=== PATIENT | female | born 1975 | race African-American/Black ===

== ENCOUNTER 2020-02-15 15:00 | Outpatient (CLI) | payer BC, SELFPAY ==
--- NOTE | ~2020-02-15 | MM_ITS ---
EXAMINATION: MM screening [place] BI w wei HISTORY: Screening mammogram TECHNIQUE: Craniocaudal and mediolateral oblique 3-D tomosynthesis images were obtained and synthetic 2-D images were generated. CAD analysis was submitted and interpreted. COMPARISON: No prior mammogram is available for comparison at this institution. BREAST PARENCHYMAL COMPOSITION: There are scattered areas of fibroglandular density. FINDINGS: There is no evidence of suspicious mass, calcification, or architectural distortion to sugg est malignancy in either breast. There has been no suspicious interval change. IMPRESSION: 1. No mammographic evidence of malignancy. 2. Recommend routine screening mammography in one year. BI-RADS Category 1: Negative Reviewed, dictated and finalized at location A.
== END 2020-02-15 15:01 | disposition home or self-care (01) ==
LOC: ANHIMG 15:05
PROVIDERS: PCP Internal Medicine; Visit Provider Nurse Practitioner
DX: Z12.31 Encounter for screening mammogram for malignant neoplasm of breast (principal)
CPT/HCPCS: 77063; 77067

== ENCOUNTER 2022-04-30 02:50 | Day surgery (SDC) | payer BC, MEDICAID, SELFPAY ==
[2022-04-25 14:42] VITALS: BMI 46.7
--- NOTE | 2022-04-25 15:30 | SUR.PREOP ---
Report to the Outpatient Waiting Room, entrance under the green pavilion located off [facility], at time 0900 on date 04/30/2022. OR Time: 1100. Time changes happen often and if your time is changed the preop area will call you the afternoon before. - You and your visitor will be asked to self-screen and do not enter if you have any COVID symptoms. - Only one visitor and NO children visitors are allowed at this time. - The patient visitor is requested to leave or wait in car when not with patient due to restrictions. - A mask is required within the hospital. Patients may have clear liquids (water, carbonated beverages, clear teas, apple juice) until 3 hours (0800) prior to surgery with a maximum of 20 ounces. - No food from midnight until time of surgery - Infants may have breast milk until 4 hours before surgery, infant formula 6 hours prior to surgery. - Children will be allowed to drink immediately following surgery. If applicable, please bring a bottle or sippy cup to assist with drinking. Juice, water, soda, and popsicles are readily available. For infants on formula, please bring formula the day of surgery. Pacifiers are allowed. Take the following medications with a SIP of water the morning of surgery: N/A Medications to discontinue per physician vitamins/supplements Date to take last dose 04/27/2022 Please no make-up, nail turkish, hairspray, perfume, deodorant, or body powder the day of surgery. No jewelry (including any body piercings) or valuables the day of surgery, leave them at home. Please take a shower or bath the night before, or the morning of, surgery with an antibacterial soap. Wear comfortable, loose fitting clothing. Children are encouraged to wear pajamas. - Jewelry must be removed prior to entering the operating room. Rings and piercings that are not removed may be cut off. - The hospital will not accept responsibility for valuables. - Please leave all valuables, including medications, at home the day of surgery. If you are going home after surgery, a licensed speedboat driver must drive you home. - NO public transportation without another adult. - We recommend that an adult stay with you for 24 hours following discharge. - We also recommend that you do not drive, make important decision, drink alcoholic beverages, or take any drugs that were not prescribed by your health care provider for at least 24 hours after your discharge time. For Pediatric surgeries, we recommend two adults accompany the child home (only one inside the building at this time). Follow any additional instructions given to you from your surgeon. If you or anyone in your household have experienced Covid symptoms in the past week, please notify your surgeon or the nurse liaison at the phone number below for possible testing. Telephone instructions given to ___patient and asked if any additional questions and then verbalized understanding. Patient advised to call surgeon office or pre surgery nurse liaison [phone] if any additional questions.
--- NOTE | 2022-04-30 07:37 | WPDHPUPDATE1 ---
History and Physical Update Update Date/Time: 04/30/22 07:37 History and Physical has been reviewed, including an updated exam of the patient. There are NO changes in the patient's condition. Risks, benefits, and alternatives have been discussed and questions answered. Patient agrees to proceed with procedure.
--- NOTE | 2022-04-30 07:37 | PM.HPGS ---
History of Present Illness History of Present Illness Consent: Risks, benefits, and alternatives have been discussed and questions answered. Patient agrees to proceed with procedure. Chief complaint: menorrhagia, fibroids Narrative: Muriel Myrick is a 46 year old female with heavy cycles. Patient has known fibroids by ultrasound. Oral contraceptives have helped with timing but with flow. It was recommended to proceed with D&C hysteroscopy with possible MyoSure. Risks of infection, bleeding, perforation, and fluid imbalance were reviewed. It was also discussed that if the fibroid is submucosal the procedure may need to be stopped before it was completely removed due to fluid imbalance. Possible other pathology was also discussed. The patient has a history of a prior hysteroscopy in 2016 and there were no submucosal fibroids. Voices understanding and agrees to proceed. Review of Systems Review of Systems: not repeated day of surgery; patient states no changes in status PMFSH Past Medical History Medical History (Updated 04/30/22 @ 07:42 by Tesha Knight MD) Anxiety Asthma (normal spontaneous vaginal delivery) x1 PVCs (premature ventricular contractions) Surgical History Surgical History (Updated 04/30/22 @ 07:40 by Tesha Knight MD) H/O sinus surgery H/O wrist surgery History of hysteroscopy 2016 Social History Social History Smoking status: Never smoker Living arrangements: with family Spiritual care concerns: No Meds Home Medications and Allergies Home Medications Medication Instructions Recorded Confirmed Type albuterol sulfate 90 mcg/actuation See Rx Instructions .Route .COMPLEX 04/25/22 04/25/22 History aerosol inhaler atenolol 25 mg tablet See Rx Instructions .Route .COMPLEX 04/25/22 04/25/22 History cetirizine 10 mg tablet (Zyrtec) 10 mg PO DAILY PRN Allergy Symptoms 04/25/22 04/25/22 History diphenhydramine HCl 50 mg capsule 50 mg PO HS PRN Allergy Symptoms 04/25/22 04/25/22 History ergocalciferol (vitamin D2) 1,250 50,000 unit PO USEASDIRECTD 04/25/22 04/25/22 History mcg (50,000 unit) capsule esomeprazole magnesium 40 mg 40 mg PO DAILY 04/25/22 04/25/22 History capsule,delayed release (Nexium) fluticasone propionate 50 See Rx Instructions .Route .COMPLEX 04/25/22 04/25/22 History mcg/actuation nasal spray,suspension iron,carbonyl 30 mg-vitamin C 10 1 tablet PO HS 04/25/22 04/25/22 History mg-FOS 25 mg chewable tablet (Chewable Iron) levocetirizine 5 mg tablet (Xyzal) 5 mg PO PRN PRN Allergy Symptoms 04/25/22 04/25/22 History montelukast 10 mg tablet 10 mg PO HS 04/25/22 04/25/22 History (Singulair) norgestimate 0.25 mg-ethinyl 1 tablet PO DAILY 04/25/22 04/25/22 History estradiol 35 mcg tablet (Estarylla) phentermine 37.5 mg tablet See Rx Instructions .Route .COMPLEX 04/25/22 04/25/22 History sertraline 50 mg tablet 50 mg PO DAILY 04/25/22 04/25/22 History Allergies Allergy/AdvReac Type Severity Reaction Status Date / Time peanut Allergy Severe Other Verified 04/25/22 14:37 Sulfa (Sulfonamide Allergy Severe Other Verified 04/25/22 14:36 Antibiotics) tree nut Allergy Severe Other Verified 04/25/22 14:37 Exam Const: General: healthy appearing and alert Orientation/consciousness: patient oriented x3 GI: GI Palp: Yes Soft to palpation, No Tenderness to palpation present (GI) and No Palpable mass present : External Female Exam: normal external appearance Speculum Exam - Vagina: normal appearance of the vagina and normal vaginal discharge Speculum Exam - Cervix: normal appearance of the cervix Bimanual exam- vagina & uterus: consistency normal and enlarged (11 week size with fibroids) Bimanual Exam- Adnexa, other: normal adnexae and No adnexal tenderness Neuro: General: patient oriented x3 Assessment and Plan Assessment and plan (1) Menorrhagia: Code(s): N92.0 - Excessive and frequent menstruation wit
[2022-04-30 09:24] VITALS: BP 157/109; PULSE 81; RESP 20; TEMP 36.2; O2SAT 100
[2022-04-30] MEDS: ACETAMINOPHEN 500 MG TABLET 1000 MG PO (09:29)
[2022-04-30] MEDS: LACTATED RINGERS 1,000 ML 30 ML IV CONT (09:35)
[2022-04-30 09:54] LABS: Hematocrit 32.5 % (37.0-47.0); Hemoglobin 10.2 g/dL (12.0-15.0)
--- NOTE | 2022-04-30 10:02 | WPDANESEPPF ---
Anes - Initial Pre Proc Eval Procedure: Operation Date: 04/30/22 11:00 Proposed Procedures p Hysteroscopy Dilation and Curettage - Tesha Knight MD Date/Time: 04/30/22 10:02 Surgeon: Tesha Knight MD Pre Op Diagnosis: menorrhagia, fibroids Patient Data Age: 46 Gender: F Height: 1.63 m Weight: 123.6 kg Allergies Allergy/AdvReac Type Severity Reaction Status Date / Time peanut Allergy Severe ANGIOEDEMA Verified 04/30/22 09:24 Sulfa (Sulfonamide Allergy Severe ANGIOEDEMA Verified 04/30/22 09:24 Antibiotics) tree nut Allergy Severe ANGIOEDEMA/DIFFICULTY Verified 04/30/22 09:24 BREATHING Home Medications Medication Instructions Recorded Confirmed Type albuterol sulfate 90 mcg/actuation See Rx Instructions .Route .COMPLEX 04/25/22 04/30/22 History aerosol inhaler atenolol 25 mg tablet See Rx Instructions .Route .COMPLEX 04/25/22 04/30/22 History cetirizine 10 mg tablet (Zyrtec) 10 mg PO DAILY PRN Allergy Symptoms 04/25/22 04/30/22 History diphenhydramine HCl 50 mg capsule 50 mg PO HS PRN Allergy Symptoms 04/25/22 04/30/22 History ergocalciferol (vitamin D2) 1,250 50,000 unit PO USEASDIRECTD 04/25/22 04/30/22 History mcg (50,000 unit) capsule esomeprazole magnesium 40 mg 40 mg PO DAILY 04/25/22 04/30/22 History capsule,delayed release (Nexium) fluticasone propionate 50 See Rx Instructions .Route .COMPLEX 04/25/22 04/30/22 History mcg/actuation nasal spray,suspension iron,carbonyl 30 mg-vitamin C 10 1 tablet PO HS 04/25/22 04/30/22 History mg-FOS 25 mg chewable tablet (Chewable Iron) levocetirizine 5 mg tablet (Xyzal) 5 mg PO PRN PRN Allergy Symptoms 04/25/22 04/30/22 History montelukast 10 mg tablet 10 mg PO HS 04/25/22 04/30/22 History (Singulair) norgestimate 0.25 mg-ethinyl 1 tablet PO DAILY 04/25/22 04/30/22 History estradiol 35 mcg tablet (Estarylla) phentermine 37.5 mg tablet See Rx Instructions .Route .COMPLEX 04/25/22 04/30/22 History sertraline 50 mg tablet 50 mg PO DAILY 04/25/22 04/30/22 History Laboratory Tests 04/30/22 09:36 Hgb 10.2 g/dL L g/dL (12.0-15.0) Hct 32.5 % L % (37.0-47.0) Patient hx anesthesia problems: none Family hx anesthesia problems: none Results Review: All pre-operative results and documents have been reviewed as part of the pre-operative evaluation. [facility] Past Medical History Medical History (Updated 04/30/22 @ 10:02 by Vishnu Bishop MD) Angioedema Anxiety Asthma (normal spontaneous vaginal delivery) x1 PVCs (premature ventricular contractions) Surgical History Surgical History H/O sinus surgery H/O wrist surgery History of hysteroscopy 2015 Social History Social History Smoking status: Never smoker Living arrangements: with family Spiritual care concerns: No Anes - Eval Final PreProcedure Day of Procedure 04/30/22 10:02 Patient weight: morbidly obese Heart: regular rate and rhythm Lungs: clear to auscultation Airway: Mallampati scale class II Neurological: alert and oriented Last oral intake: >/= 8 hours ASA classification: III Emergent: no Anesthetic plan: proceed Anesthesia type and monitoring: general GIVS and standard monitoring Results Review: All pre-operative results and documents have been reviewed as part of the pre-operative evaluation. Informed Consent: The patient's anesthetic plan and its attendant risks and benefits were discussed with the patient/family/POA. Questions were solicited and answers provided to the satisfaction of the patient/family/POA.
[2022-04-30 10:20] VITALS: BP 137/80
[2022-04-30] MEDS: LIDOCAINE HCL 1% PF 30 ML VIAL 10 ML INFILTRATE (10:43)
[2022-04-30] MEDS: KETOROLAC 30 MG/ML VIAL (*BKC) IV PUSH (10:53)
--- NOTE | 2022-04-30 11:01 | W.PM.PROC2 ---
Procedure Note - Detailed Date of Procedure 04/30/22 Pre-op Diagnosis menorrhagia, fibroids Post-op Diagnosis Same Procedure Performed D&C hysteroscopy with MyoSure resection of fibroids Surgeon Tesha Knight MD Anesthesia MAC and Local Findings Uterus sounds to 8cm. There is a small anterior fibroid and a medium posterior fibroid. The remainder of the cavity appears grossly normal. Description of Procedure The patient is taken to the operating room and placed under anesthesia in the dorsal lithotomy position. She was prepped and draped in the usual sterile fashion. The bivalve speculum was placed in the vagina and the cervix grasped on the anterior lip with a tenaculum. The cervix is injected in each quadrant with 1% lidocaine. The uterus is sounded to 8cm and the cervix serially dilated to an 8 Hegar. The diagnostic hysteroscope was placed with the above-stated findings. The hysteroscope was removed and the MyoSure camera and device are placed. Under direct visualization both fibroids are removed in their entirety. The hysteroscope was then removed and the medium sharp curette used to curette the endometrium until a good uterine cry was noted in all areas. All instruments were then removed. Sponge, needle, and instrument counts are correct per the OR staff. Fluid in 1500cc fluid out 1450cc. Estimated Blood Loss 5 Drains No Packing No Pathology Yes (Endometrial shavings and curettings) Complications No immediate complications Condition Stable Disposition PACU
[2022-04-30 11:05] VITALS: BP 153/92; PULSE 74; RESP 16; O2SAT 94
[2022-04-30] MEDS: fentaNYL CITRATE INJ (*CRX) 100 MCG/2 ML VIAL 25 MCG IV PUSH ×2 (11:28→11:31)
[2022-04-30 11:35] VITALS: BP 162/83; PULSE 63; RESP 16
== END 2022-04-30 12:16 | disposition home or self-care (01) ==
PROVIDERS: Anesthesiology; PCP Internal Medicine; Visit Provider Obstetrics & Gynecology Gynecology
PROC: 0U5B8ZZ Destruction of Endometrium, Via Natural or Artificial Opening Endoscopic (ICD-10-PCS; CPT 58563; principal; 2022-04-30 11:00)
DX: N92.0 Excessive and frequent menstruation with regular cycle (principal); D25.9 Leiomyoma of uterus, unspecified; J45.909 Unspecified asthma, uncomplicated; F41.9 Anxiety disorder, unspecified; Z79.51 Long term (current) use of inhaled steroids
CPT/HCPCS: 58561; 36415; 85014; 85018; 88305; A9270; J1100; J1885; J2250; J2405; J2704; J3010; J7030; J7120